=== PATIENT | female | born 2000 | race African-American/Black ===

== ENCOUNTER 2021-06-30 14:30 | Emergency (ER) | payer BC ==
[~2021-06-30] VITALS: Ht 162.6 cm; Wt 71.9 kg
[2021-06-30] MEDS ORDERED: CEFDINIR300 MG PO (15:14)
== END 2021-06-30 15:20 | disposition home or self-care (01) ==
LOC: FSED 15:07
DX: J02.9 Acute pharyngitis, unspecified (principal)
CPT/HCPCS: 83518; 99283